=== PATIENT | female | born 1975 | race Caucasian/White ===

== ENCOUNTER 2021-12-25 09:02 | Emergency (ER) | payer OTHER, SELFPAY ==
[2021-12-25 09:05] VITALS: BP 151/92; PULSE 78; RESP 19; TEMP 36.6; O2SAT 98; BMI 31.9
--- NOTE | 2021-12-25 09:31 | HMH.EDUTC ---
[facility] Disposition Clinical Impression: Infected dog bite Disposition: Home, Self-Care Condition on Discharge: Good Instructions: Amoxicillin and Clavulanic Acid, DI for Dog Bite Additional Instructions: Take medication as prescribed Follow up with your Family Doctor if no improvement or any worsening of symptoms Return if needed Straight to ER if any life threatening symptoms Prescriptions: Amoxicillin/Potassium Clav [Amox-Clav 875-125 mg Tablet] 1 tab PO BID #20 tab Transmission Status: Pending to [id number] Referrals: Provider,Referral, [Primary Care Provider] - Time of Disposition: 09:42 Medical Decision Making - Rey Inquiry Pt receiving controlled substance: No Rey was queried for this patient: No Vital Signs: 12/25/21 09:05 Temperature 97.8 F Temperature Source Oral Pulse Rate [Right Brachial] 78 Respiratory Rate 19 Blood Pressure [Right Arm] 151/92 H Blood Pressure Mean [Right Arm] 111 Blood Pressure Source [Right Arm] Automatic Cuff Blood Pressure Position [Right Arm] Sitting 02 Sat by Pulse Oximetry 98 Oxygen Delivery Method Room Air [facility] HPI - General Stated complaint: dog bite lt hand 12/24 Time Seen by Provider: 12/25/21 09:31 Mode of Arrival: Ambulatory Source of Information: Patient Limitations: No Limitations Description of Symptoms (Recalled from Triage Doc. by RN): PATIENT C/O DOG BITE TO LEFT MIDDLE FINGER YESTERDAY HEENT Symptoms (Recalled from RN notes): No Resp Symptoms (Recalled from RN notes): No Skin Symptoms (Recalled from RN notes): Yes MS Symptoms (Recalled from RN notes): No Functional Status (Recalled from RN notes): WNL - History of Present Illness Provider Complaint: Patient state that she was in visiting family and their dog snipped her while playing with it and caused small laceration State that she immediately cleaned the wound and applied neosporin States that this morning she woke up and it was looking little red and swollen so she came in to get it checked and see if she may need antibiotics - Related Data Previous Rx's Medication Instructions Recorded Amoxicillin/Potassium Clav 1 tab PO BID #20 tab 12/25/21 [Amox-Clav 875-125 mg Tablet] Allergies Allergy/AdvReac Type Severity Reaction Status Date / Time No Known Allergies Allergy Verified 12/25/21 09:29 - Worker's Comp Is this a Worker's Comp case?: No [facility] History - Hepatitis A Screen Attestation statement:: This patient has been screened for Hepatitis A risk factors. I have reviewed the patient's past medical history: Yes - Social History Alcohol Intake: never Occupational Status: other ROS Obtained: Yes All systems reviewed & no additional complaints, Yes Systems reviewed as appropriate & no additional complaints - Constitutional Constitutional: Reports system reviewed and no additional complaints, except as docu - ENT Ears, Nose, Mouth, and Throat: Reports system reviewed and no additional complaints, except as docu - Cardiovascular Cardiovascular: Reports system reviewed and no additional complaints, except as docu - Respiratory Respiratory: Reports system reviewed and no additional complaints, except as docu - Gastrointestinal Gastrointestingal: Reports: system reviewed and no additional complaints, except as docu - Integumentary/Breasts Skin/Breast: Reports other (dog bite to left middle finger) Physical Exam - General General appearance: alert, in no apparent distress - Respiratory Respiratory exam: Present: normal lung sounds bilaterally. Absent: respiratory distress - Cardiovascular Cardiovascular exam: Present: regular rate, normal rhythm. Absent: JVD - Abdominal Exam Abdominal exam: Present: soft, normal bowel sounds. Absent: distention, tenderness, guarding - Neurological Exam Neurological exam: Present: alert, oriented X3
[2021-12-25 09:44] VITALS: BP 151/92; PULSE 78; RESP 19; TEMP 36.6; O2SAT 98
== END 2021-12-25 09:55 | disposition home or self-care (01) ==
PROVIDERS: Emergency Provider Nurse Practitioner
DX: L03.012 Cellulitis of left finger (principal); S60.473A Other superficial bite of left middle finger, initial encounter; W54.0XXA Bitten by dog, initial encounter; Y92.89 Other specified places as the place of occurrence of the external cause
CPT/HCPCS: 99212; G0463